=== PATIENT | female | born 1985 | race Caucasian/White ===

== ENCOUNTER 2018-04-20 21:05 | Emergency (ER) | payer OTHER, MEDICAID, SELFPAY ==
[2018-04-20 21:06] VITALS: BP 139/85; PULSE 64; RESP 14; TEMP 37.1; O2SAT 99
[2018-04-20 21:29] VITALS: BP 139/85; PULSE 64; RESP 14; TEMP 37.1; O2SAT 99
--- NOTE | 2018-04-20 21:29 | ED.DENTAL ---
HPI - Dental/Oral <KAR Rice - Last Filed: 04/20/18 21:54> General Chief complaint: Dental/Oral Stated complaint: Toothpain Time Seen by Provider: 04/20/18 21:28 Source: patient Mode of arrival: ambulatory Limitations: no limitations History of Present Illness HPI Narrative: 32-year-old healthy female as an everyday smoker here for complaint of pain into her lower molar 28 over the past several days. She reports that she accidentally fractured the tooth while biting down on a piece of candy last week. She denies any drainage from that area. She does report the pain started a few days after she fractured the tooth. She also reports increased pain and swelling to the gum area around the tooth. She denies any fevers or chills. She tried to get into a dentist however she was not able to. Related Data Previous Rx's Medication Instructions Recorded clindamycin HCl 300 mg PO TID #21 cap 04/20/18 hydrocodone-acetaminophen 1 tab PO Q4-6H PRN #10 tab 04/20/18 Allergies Allergy/AdvReac Type Severity Reaction Status Date / Time No Known Drug Allergies Allergy Verified 04/20/18 22:06 Review of Systems <KAR Rice - Last Filed: 04/20/18 21:54> Constitutional Denies chills, Denies fever(s), Denies lethargy and Denies weakness Eyes Denies change in vision, Denies eye discharge, Denies irritation and Denies loss of vision ENT Ears, Nose, Mouth, and Throat: Denies change in voice, Denies neck pain and Denies sore throat Comments: To the gum pain into a right lower side Cardiovascular Denies chest pain, Denies irregular heart rhythm, Denies lightheadedness, Denies palpitations, Denies dyspnea, Denies dyspnea on exertion and Denies orthopnea Respiratory Denies cough, Denies dyspnea, Denies dyspnea on exertion and Denies wheezing Gastrointestinal Gastrointestinal: Denies abdominal pain, Denies change in bowel habits, Denies diarrhea, Denies nausea and Denies vomiting Genitourinary Denies hematuria, Denies flank pain, Denies urinary incontinence and Denies urinary urgency Musculoskeletal Denies neck pain Integumentary/Breasts Denies pruritus, Denies erythema, Denies rash and Denies wounds Neurologic Denies confusion, Denies loss of vision and Denies weakness Psychiatric Denies anxiety, Denies confusion, Denies depression, Denies homicidal ideation and Denies suicidal ideation Endocrine Denies palpitations Hematologic/Lymphatic Denies easy bruising Allergic/Immunologic Denies wheezing Exam <KAR Rice - Last Filed: 04/20/18 21:54> Initial Vital Signs Initial Vital Signs: Vital Signs Temperature 98.8 F 04/20/18 21:06 Pulse Rate 64 04/20/18 21:06 Respiratory Rate 14 04/20/18 21:06 Blood Pressure 139/85 04/20/18 21:06 Pulse Oximetry 99 04/20/18 21:06 Const General: cooperative and well developed Nutritional Appearance: well nourished Orientation: alert, awake, oriented x3 and not confused HENMT Mouth: oral mucosae normal and moist mucous membranes Teeth and gingiva: other (Fracture to tooth 28. Slight amount of redness and swelling to the gums. no induration or fluctuance) Throat: tonsils normal and uvula midline Eyes General: appearance normal, both eyes and all related structures Eyelids: eyelids normal Conjunctivae: conjunctivae normal Sclera: sclerae normal Pupils: PERRL EOM: EOM intact bilaterally Neck Neck: normal visual inspection, trachea midline, No lymphadenopathy, No midline deformity and No JVD Lymphatic: No lymphedema Chest Chest: normal inspection of the chest Resp Effort & Inspection: normal respiratory effort, able to speak in complete sentences, no respiratory distress and no use of accessory muscles Auscultation: clear to auscultation bilaterally, no rales, no rhonchi and no wheezes Cardio Rate: regular rate Rhythm: regular rhythm Heart Sounds: no click, no gallops, no murmurs and no rubs Pulses: normal peripheral pulses GI Inspection: non-distended Palpation: soft, no hepatosplenomegaly, No guarding, No pulsatile mass and No tender Auscultation: normal bowel sounds Back/Spine/Pelvis Back: No CVA tenderness Cervical Spine: cervical ROM normal and No pain with cervical ROM Thoracic/Lumbar Spine: thoracic and lumbar spine normal to inspection Skin General: no rashes or lesions noted, No jaundice and No petechiae Neuro General: alert, oriented x3, gait normal and no focal motor deficits Speech: speech normal Extrem General: full ROM, no clubbing, cyanosis or edema, no pedal edema and no calf tenderness Psych Appearance: well kempt Mental Status: mental status grossly normal Attitude: cooperative Thought Content: normal and suicidality Judgment: judgment good <Sathish Merrill DO - Last Filed: 04/21/18 02:06> Initial Vital Signs Initial Vital Signs: Vital Signs Temperature 98.8 F 04/20/18 21:06 Pulse Rate 64 04/20/18 21:06 Respiratory Rate 14 04/20/18 21:06 Blood Pressure 139/85 04/20/18 21:06 Pulse Oximetry 99 04/20/18 21:06 Course <KAR Rice - Last Filed: 04/20/18 21:54> Orders Ordered: Discontinued Medications Hydrocodone Bitart/Acetaminophen (Vicodin Prepack) 1 bottle MISC SEEINSTR ONE Stop: 04/20/18 21:53 Last Admin: 04/20/18 22:05 Dose: 1 bottle Vital Signs - 8 hr 04/20/18 21:06 04/20/18 21:29 Temperature 98.8 F 98.8 F Pulse Rate 64 64 Respiratory Rate 14 14 Blood Pressure 139/85 139/85 Pulse Oximetry 99 99 <Sathish Merrill DO - Last Filed: 04/21/18 02:06> Orders Ordered: Discontinued Medications Hydrocodone Bitart/Acetaminophen (Vicodin Prepack) 1 bottle MISC SEEINSTR ONE Stop: 04/20/18 21:53 Last Admin: 04/20/18 22:05 Dose: 1 bottle Vital Signs - 8 hr 04/20/18 21:06 04/20/18 21:29 Temperature 98.8 F 98.8 F Pulse Rate 64 64 Respiratory Rate 14 14 Blood Pressure 139/85 139/85 Pulse Oximetry 99 99 MDM - Dental/Oral <KAR Rice - Last Filed: 04/20/18 21:54> MDM Narrative Medical decision making narrative: Continued using ibuprofen for discomfort. Small amount of [place] is prescribed for breakthrough pain. She is prescribed clindamycin to treat possible starting dental abscess. She is encouraged to follow up with dentist as soon as possible. For any worsening symptoms return to the emergency room. Discharge Plan Departure Patient Disposition: Home Clinical Impression: Pain, dental Discharge Date/Time: 04/20/18 22:04 Interventions: ED Discharge Assessment Last Done: 04/20/18 22:04 Instructions: DI for Dental Pain Activity Restrictions/Additional Instructions: Use [id number] ibuprofen as needed for discomfort. Small amount of [place] was provided for breakthrough pain use as directed. No driving while on the [place]. To prevent starting infection You are placed on clindamycin an antibiotic use as directed. For any worsening symptoms return to the emergency room. Follow-up with dentist as soon as possible. Prescriptions: New clindamycin HCl 300 mg capsule 300 mg PO TID Qty: 21 RF: 0 hydrocodone-acetaminophen 5-325 mg tablet 1 tab PO Q4-6H PRN (Reason: pain) Qty: 10 RF: 0 <Sathish Merrill, - Last Filed: 04/21/18 02:06> [facility] ED Attending June Attestation: I was immediately available in the department for consultation. Documentation has been reviewed. I agree with assessment and plan.
--- NOTE | 2018-04-20 21:32 | PC.NURSE ---
PT states cracked tooth and pain to #29 tooth, after eating a peanut M&M on 04/16. 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 Pt denies fever.
[2018-04-20] MEDS: HYDROCODONE/ACET 5/325 PREPACK 1 BOTTLE MISC (22:05)
== END 2018-04-20 22:04 | disposition home or self-care (01) ==
PROVIDERS: Emergency Provider Nurse Practitioner Family
DX: K08.89 Other specified disorders of teeth and supporting structures (principal)
CPT/HCPCS: 99282

== ENCOUNTER 2019-08-11 20:41 | Emergency (ER) | payer OTHER, MEDICAID, SELFPAY ==
[2019-08-11 20:52] VITALS: BP 141/66; PULSE 105; RESP 20; TEMP 36.8; O2SAT 97
--- NOTE | 2019-08-11 20:54 | DI.RAD.S_ITS ---
PROCEDURE: XR ANKLE LT MIN 3V INDICATIONS: lt ankle pain no known injury TECHNIQUE: 3 views of the ankle were acquired. COMPARISON: None. FINDINGS: Bones: Mild osteophytic changes in tibiotalar joint are seen with joint space narrowing and subchondral sclerosis. Slight widening of lateral ankle mortise is seen, which may represent distal syndesmotic injury. No fractures or dislocations. The No suspicious bony lesions. Soft tissues: No tibiotalar joint effusion. Achilles tendon appears normal. IMPRESSION: Mild tibiotalar joint osteoarthritic changes. Widening of lateral ankle mortise, which may indicate syndesmotic injury. No acute fracture or dislocation. Dictated by: Memo Winston M.D. on 08/11/2019 at 21:30 Approved by: Memo Winston M.D. on 08/11/2019 at 21:31
--- NOTE | 2019-08-11 22:36 | ED_ITS ---
HPI - Extremity Injury (Lower) General Chief Complaint: Extremity Injury, Lower Stated Complaint: LEFT ANKLE PAIN Time Seen by Provider: 08/11/19 22:36 Source: patient Mode of arrival: Ambulatory Limitations: no limitations History of Present Illness HPI Narrative: This is a 33-year-old female comes in with left ankle pain. Patient states she has had pain starting since Friday. She does remember having any trauma. She has been working on her legs more frequently. She has had some swelling a little bit of ecchymosis. She has pain sort of at the ankle laterally in the middle. She denies any numbness, tingling or weakness. She denies any major prior injuries. She states she had a short Achilles tendon as a child. She denies any other issues at this time. Related Data Previous Rx's Medication Instructions Recorded clindamycin HCl 300 mg PO TID #21 cap 04/20/18 hydrocodone-acetaminophen 1 tab PO Q4-6H PRN #10 tab 04/20/18 Allergies Allergy/AdvReac Type Severity Reaction Status Date / Time No Known Drug Allergies Allergy Verified 04/20/18 22:06 Review of Systems Review of Systems ROS Unobtainable: All systems reviewed & are unremarkable except as noted in HPI and below Patient History Social History Smoking Status: Current every day smoker Smoking Status: Current every day smoker Exam Narrative Exam Narrative: GENERAL: Alert and oriented x three, well-nourished, well- appearing female, mild distress HEENT: Head normocephalic, atraumatic, EOMI, pupils reactive, face symmetric, moist mucous membranes NECK: Supple, full range of motion EXTREMITIES: Normal range of motion, no clubbing, mild edema, particularly over the lateral malleoli. Mild tenderness in the mid ankle. Note specific bony tenderness or point tenderness. Patient does not have any ecchymosis that I appreciate. She has normal range of motion. Patient is able to weight bear. Neurovascularly intact NEUROLOGICAL: Cranial nerves II through XII grossly intact. Moving all extremities SKIN: Warm, dry, no petechiae, no rashes or lesions. Initial Vital Signs Initial Vital Signs: Vital Signs Temperature 98.2 F 08/11/19 20:52 Pulse Rate 105 H 08/11/19 20:52 Respiratory Rate 20 08/11/19 20:52 Blood Pressure 141/66 H 08/11/19 20:52 Pulse Oximetry 97 08/11/19 20:52 Course Orders Ordered: ED Orders 08/11/19 20:54 XR ankle LT min 3V Stat Vital Signs Vital signs: Vital Signs - 8 hr 08/11/19 23:03 Temperature 99.3 F Pulse Rate 85 Respiratory Rate 16 Blood Pressure 141/65 H Pulse Oximetry 97 MDM - Extremity Injury (Lower) Imaging Data left ankle xray: Radiologist's Impression: [address] [address] XRay Report Signed Patient: Parvin Atkinson GMR#: [id number] : 1985Acct:[id number] Age/Sex: 33 / FDate of Service: 08/11/19 Loc: ED Accession Number: [id number] Procedure: XR ankle LT min 3V Ordering Provider: Eden Saunders D.O. PROCEDURE: XR ANKLE LT MIN 3V INDICATIONS: lt ankle pain no known injury TECHNIQUE: 3 views of the ankle were acquired. COMPARISON: None. FINDINGS: Bones: Mild osteophytic changes in tibiotalar joint are seen with joint space narrowing and subchondral sclerosis. Slight widening of lateral ankle mortise is seen, which may represent distal syndesmotic injury. No fractures or dislocations. The No suspicious bony lesions. Soft tissues: No tibiotalar joint effusion. Achilles tendon appears normal. IMPRESSION: Mild tibiotalar joint osteoarthritic changes. Widening of lateral ankle mortise, which may indicate syndesmotic injury. No acute fracture or dislocation. Dictated by: Memo Winston M.D. on 08/11/2019 at 21:30 Approved by: Memo Winston M.D. on 08/11/2019 at 21:31 [facility] Narrative Medical decision making narrative: Patient does have some osteoarthritic changes as well as some widening that could possibly from syndesmosis injury. She does not recall any trauma. Referred for Orthopedic surgery as she may have had something in the past. She did have a short Achilles tendon and had intervention for this as a child so this could also affect her imaging possibly. Patient is ambulating without much issue. She has her own splint. Plan for RICE and return precautions. Discharge Plan Departure Patient Disposition: Home Clinical Impression: Left ankle pain Qualifiers: Chronicity: unspecified Qualified Code(s): M25.572 - Pain in left ankle and joints of left foot Discharge Date/Time: 08/11/19 23:03 Instructions: DI for Ankle Pain Activity Restrictions/Additional Instructions: Call to follow-up with Orthopedic surgery in the next week or two for recheck. You may use Tylenol and/or ibuprofen as needed for pain. Splint Care: Keep splint clean and dry. Elevated affected body part to decrease swelling. OK to use ice pack on the affected body part. Use for 15-20 minutes each time, for 5-6x per day. If you develop worsening pain, numbness, tingling, discoloration of the affected body part, loosen the splint by loosening the HALI wrap, and either see your doctor for an urgent re-assessment, or return to the Emergency Department. Return to the Emergency Department for any new or worsening symptoms. Prescriptions: No Action clindamycin HCl 300 mg capsule 300 mg PO TID Qty: 21 RF: 0 hydrocodone-acetaminophen 5-325 mg tablet 1 tab PO Q4-6H PRN (Reason: pain) Qty: 10 RF: 0 Referrals: Julian Brandt MD [Physician] -
[2019-08-11 23:03] VITALS: BP 141/65; PULSE 85; RESP 16; TEMP 37.4; O2SAT 97
--- NOTE | 2019-12-02 13:10 | PC.NURSE ---
Pt called ED claiming that she lost her discharge paperwork and needs to know where she was referred to by Dr. Saunders. Pt is now aware that she was referred to Dr. Brandt at [facility] and was given the phone number to reach them.
== END 2019-08-11 23:03 | disposition home or self-care (01) ==
PROVIDERS: Emergency Provider Emergency Medicine
DX: M25.572 Pain in left ankle and joints of left foot (principal)
CPT/HCPCS: 73610; 99283

== ENCOUNTER 2023-03-24 23:23 | Emergency (ER) | payer BC, SELFPAY ==
[2023-03-24 23:26] VITALS: BP 140/65; PULSE 74; RESP 18; TEMP 37.1; O2SAT 97; BMI 29.7
[2023-03-24 23:59] LABS: Add Manual Diff / Slide Review NO; Basophils Absolute Auto 200 /uL (0-100); Basophils Percent Auto 1.1 % (0-2); Eosinophils Absolute Auto 200 /uL (0-450); Eosinophils Percent Auto 0.9 % (2-4); Hematocrit 37.1 % (36-46); Hemoglobin 12.7 g/dL (12.0-16.0); Lymphocytes Absolute Auto 2600 /uL (1100-4500); Lymphocytes Percent Auto 14.7 % (25-40); Mean Corpuscular HGB Conc 34.2 % (30-36); Mean Corpuscular Hemoglobin 29.7 PG (26-34); Mean Corpuscular Volume 86.9 fL (80-100); Monocytes Absolute Auto 1000 /uL (0-900); Monocytes Percent Auto 5.6 % (3-14); Neutrophils Absolute Auto 13400 /uL (1500-7000); Neutrophils Percent Auto 77.7 % (50-75); Platelet Count 326 X10^3/uL (150-400); Red Blood Cell Count 4.26 X10^6/uL (4.0-5.2); Red Cell Distribution Width 15.5 % (11.6-14.8); White Blood Cell Count 17.3 X10^3/uL (4.5-11.0)
--- NOTE | 2023-03-25 00:01 | DI.US.S_ITS ---
PROCEDURE: US OB <= 14 WEEKS FETUS INDICATIONS: BLEEDING OUTSIDE/PRIOR DATING DATA: Last menstrual period (LMP): 01/16/23. LMP-based estimated date of delivery (PRITI): 10/23/23. First dating scan (date and location): 03/25/23. Estimated date of delivery (PRITI) from first dating scan: 10/23/23. TECHNIQUE: Real-time scanning was performed of the fetus and maternal pelvic organs, with image documentation. Endovaginal scanning was also performed to better visualize the fetus and maternal ovaries. COMPARISON: None. FINDINGS: Anteverted uterus contains a fundal gestational sac. No perigestational hemorrhage. The cervix is closed and there are few nabothian cysts present. An intrauterine is present including a single pole with an average crown-rump length of 2.8 cm corresponding to a 9 week, five day, plus or minus 6 days gestation. There is detectable cardiac activity in the fetus at a rate of 130 beats per minute. A normal yolk sac is present. There is an unfused amnion. Maternal right ovary contains a corpus luteum. The left ovary is within normal limits. No free fluid in the pelvis. IMPRESSION: 1. Single living intrauterine with a gestational age of 9 weeks 5 days and sonographic due date of 10/23/23. This is in good agreement with the clinically assigned gestational age. 2. No perigestational hemorrhage and closed cervix. We strive to produce accurate, complete, and clear reports of imaging services. To assist us in improving patient care, this report was composed using standard report templates and voice recognition software. Therefore, it may contain abnormal punctuation, insertions and/or omissions. Occasional wrong-word or sound-alike substitutions may occur. Though we review the report and make efforts to correct it, we do recommend that the report be read carefully in proper context to recognize any text inaccuracies. Dictated by: Jaci Alegria M.D. on 03/25/2023 at 2:36 Approved by: Jaci Alegria M.D. on 03/25/2023 at 2:40
[2023-03-25 00:14] LABS: Alanine Aminotransferase 14 IU/L (<35); Albumin 3.8 g/dL (3.5-5.0); Albumin Globulin Ratio 1.2 (1.0-2.8); Alkaline Phosphatase 41 U/L (38-126); Aspartate Aminotransferase 19 IU/L (14-36); BUN Creatinine Ratio 12.1 (6-22); Bilirubin Total 0.3 mg/dL (0.2-1.3); Blood Urea Nitrogen 7 mg/dL (7-17); Calcium 8.9 mg/dL (8.4-10.2); Carbon Dioxide 20 mmol/L (22-32); Chloride 106 mmol/L (98-107); Estimated Glomerular Filt Rate > 60 mL/min (>60); Globulin 3.1 g/dL (1.7-4.1); Glucose 105 mg/dL (70-100); HEMOLYSIS < 15 (0-50); Potassium 3.4 mmol/L (3.4-5.1); Sodium 134 mmol/L (137-145); Total Protein 6.9 g/dL (6.3-8.2)
[2023-03-25 00:31] LABS: HCG Quantitative /Beta subunit 80016 mIU/mL
--- NOTE | 2023-03-25 00:58 | ED.FEMALEGU ---
HPI - Female Genitourinary General Chief complaint: OB/Uterine Contractions Stated complaint: vaginal bleeding around 9 weeks not sure Time Seen by Provider: 03/24/23 23:37 Source: patient Mode of arrival: Ambulatory History of Present Illness HPI Narrative: 37-year-old female daily smoker is a at about 9 weeks by dates presents with a chief complaint of some mild pelvic cramping and spotting over the course of the day. She is otherwise well and free of complaint and denies symptoms such as dizziness, weakness or lightheadedness. She is had chest pain or shortness of breath. She denies fever or chills. She denies dysuria, frequency or urgency Related Data Previous Rx's Medication Instructions Recorded clindamycin HCl 300 mg capsule 300 mg PO TID #21 caps 04/20/18 hydrocodone 5 mg-acetaminophen 325 1 tab PO Q4-6H PRN pain #10 tabs 04/20/18 mg tablet Allergies Allergy/AdvReac Type Severity Reaction Status Date / Time No Known Drug Allergies Allergy Verified 04/20/18 22:06 Review of Systems Review of Systems Narrative: GENERAL: Denies chills, fatigue, malaise, fever, sweats. HEENT: Denies sinus pain, ear pain, sore throat, difficulty swallowing, dizziness. RESPIRATORY: Denies dyspnea, cough, wheezing, hemoptysis, sputum. CARDIOVASCULAR: Denies chest pain, palpitations, orthopnea, edema, GASTROINTESTINAL: Denies nausea, vomiting, abdominal pain, diarrhea, constipation, melena. : See HPI MUSCULOSKELETAL: denies weakness, joint pain, or bony pain SKIN: Denies rash, skin lesions, or other NEUROLOGIC: Denies weakness, headache, numbness, change in speech, confusion, seizures, incoordination. PSYCHIATRIC: No concerning psychosocial issues. 12 point review of systems is negative except for those stated above Patient History tobacco type: cigarettes alcohol intake frequency: other Substance Use Type: marijuana Exam Narrative Exam Narrative: GENERAL: [37] year old patient appears stated age. Well-developed patient, in mild distress. HEAD: Atraumatic. Normocephalic. EYES: Pupils equal round and reactive. Extraocular motions intact. No scleral icterus. No injection or drainage. ENT: Nose without bleeding, purulent drainage. Throat without erythema, tonsillar hypertrophy or exudate. Airway patent. NECK: Trachea midline. Non tender CARDIOVASCULAR: Regular rate and rhythm without murmurs, gallops, or rubs. RESPIRATORY: Clear to auscultation. Breath sounds equal bilaterally. No wheezes, rales, or rhonchi. GASTROINTESTINAL: Abdomen soft, non-tender, nondistended. EXTREMITIES: No edema or joint tenderness. BACK: Nontender without deformity or crepitance. No flank tenderness. NEURO: AOx3. SKIN: No rash or erythema of visible areas Initial Vital Signs Initial Vital Signs: Vital Signs Temperature 98.8 F 03/24/23 23:26 Pulse Rate 74 03/24/23 23:26 Respiratory Rate 18 03/24/23 23:26 Blood Pressure 140/65 03/24/23 23:26 Pulse Oximetry 97 03/24/23 23:26 Oxygen Delivery Method Room Air 03/24/23 23:26 Course Orders Ordered: ED Orders 03/24/23 23:43 Complete Blood Count AUTO DIFF Stat Comprehensive Metabolic Panel Stat HCG Quantitative /Beta subunit Stat Type and Screen Stat 03/25/23 00:01 US OB <= 14 weeks fetus Stat Vital Signs Vital signs: Vital Signs - 8 hr 03/24/23 23:26 03/25/23 03:31 Temperature 98.8 F 98.8 F Pulse Rate 74 56 L Respiratory Rate 18 16 Blood Pressure 140/65 111/58 L Pulse Oximetry 97 98 Oxygen Delivery Method Room Air Room Air MDM - Female Genitourinary Lab Data 03/24/23 23:43 03/24/23 23:43 Labs: Lab Results 03/24/23 Range/Units 23:43 WBC 17.3 H (4.5-11.0) X10^3/uL RBC 4.26 (4.0-5.2) X10^6/uL Hgb 12.7 (12.0-16.0) g/dL Hct 37.1 (36-46) % MCV 86.9 (80-100) fL MCH 29.7 (26-34) PG MCHC 34.2 (30-36) % RDW 15.5 H (11.6-14.8) % Plt Count 326 (150-400) X10^3/uL Neut % (Auto) 77.7 H (50-75) % Lymph % (Auto) 14.7 L (25-40) % Nelson % (Auto) 5.6 (3-14) % Eos % (Auto) 0.9 L (2-4) % Baso % (Auto) 1.1 (0-2) % Neut # (Auto) 95831 H (8631-8941) /uL Lymph # (Auto) 2600 (3896-1605) /uL Nelson # (Auto) 1000 H (0-900) /uL Eos # (Auto) 200 (0-450) /uL Baso # (Auto) 200 H (0-100) /uL Sodium 134 L (137-145) mmol/L Potassium 3.4 (3.4-5.1) mmol/L Chloride 106 (98-107) mmol/L Carbon Dioxide 20 L (22-32) mmol/L BUN 7 (7-17) mg/dL Creatinine 0.58 (0.52-1.04) mg/dL Estimated GFR > 60 (>60) mL/min BUN/Creatinine Ratio 12.1 (6-22) Glucose 105 H (70-100) mg/dL Calcium 8.9 (8.4-10.2) mg/dL Total Bilirubin 0.3 (0.2-1.3) mg/dL AST 19 (14-36) IU/L ALT 14 (<35) IU/L Alkaline Phosphatase 41 (38-126) U/L Total Protein 6.9 (6.3-8.2) g/dL Albumin 3.8 (3.5-5.0) g/dL Globulin 3.1 (1.7-4.1) g/dL Albumin/Globulin Ratio 1.2 (1.0-2.8) HCG, Quant 05388 mIU/mL Blood Type A Positive Antibody Screen Negative Point of Care Testing Test Results Positive Urine Dip Bedside Urine Glucose Negative Bedside Urine Bilirubin - Negative Bedside Urine Ketone - Negative Urine Specific Crawford 1.010 Bedside Urine Occult Blood - Negative Bedside Urine pH 6.0 Bedside Urine Protein - Negative Bedside Urine Urobilinogen - Negative Bedside Urine Nitrite - Negative Bedside Urine Leukocytes - Negative Esterase MDM Narrative Medical decision making narrative: [37] year old patient presents with positive , cramping and spotting Multiple etiologies for patient's symptoms considered including, but not limited to: [Implantation bleeding versus miscarriage versus ectopic versus other] Prior Charts reviewed in our EMR Primary Historian: patient Labs reviewed and interpreted by myself: Leukocytosis at 17.3 with minimal relative left shift, primary electrolytes within normal limits, beta quantitative HCG 15595 Imaging reviewed: IUP at 9 weeks Patient's symptoms improved over duration of stay with above-stated therapies. Findings and discharge diagnosis discussed with patient/family followed by verbalization of understanding Return precautions discussed with patient/family whom verbalize understanding of diagnosis and plan Discharge Plan Departure Patient Disposition: Home Clinical Impression: Hemorrhage affecting in first trimester Instructions: DI for Vaginal Bleeding During Activity Restrictions/Additional Instructions: *You have been diagnosed with [spotting in first-trimester of . As we discussed your history and physical exam as well as labs and ultrasound are reassuring] *What to do: *Please continue to take your regular medications as directed. *Please follow up with your primary care provider in 2-3 days, call for an appointment. Let them know you were seen in the Emergency Department and that we ask that you be seen in follow up. We will electronically transmit a record of today's note if your PCP is in our system *If you do not have a primary care provider please contact the [facility] Resource line at [phone]. They will ask some questions about your medical history and help get you set up with a doctor in the community. *Return to Emergency Department if you should have any new, worsening or concerning symptoms, such as [fever greater than 101 F, shaking chills, worsening pain, persistent vomiting or other bothersome symptoms] Prescriptions: No Action clindamycin HCl 300 mg capsule 300 mg PO TID Qty: 21 0RF hydrocodone-acetaminophen 5-325 mg tablet 1 tab PO Q4-6H PRN (Reason: pain) Qty: 10 0RF Referrals: Emmie Arteaga MD [Physician] - Stand Alone Forms: Patient Portal/API
[2023-03-25 03:31] VITALS: BP 111/58; PULSE 56; RESP 16; TEMP 37.1; O2SAT 98
== END 2023-03-25 03:32 | disposition home or self-care (01) ==
PROVIDERS: Emergency Provider Emergency Medicine
DX: O20.9 Hemorrhage in early pregnancy, unspecified (principal); Z3A.09 9 weeks gestation of pregnancy
CPT/HCPCS: 36415; 76801; 76817; 80053; 81003; 81025; 84702; 85025; 86850; 86900; 86901; 99283; 99284

== ENCOUNTER → 2023-04-11 15:24 | Outpatient (CLI) | payer BC, SELFPAY ==
[2023-04-11 16:16] LABS: Add Manual Diff / Slide Review NO; Basophils Absolute Auto 100 /uL (0-100); Basophils Percent Auto 0.7 % (0-2); Eosinophils Absolute Auto 200 /uL (0-450); Eosinophils Percent Auto 1.7 % (2-4); Hematocrit 38.6 % (36-46); Lymphocytes Absolute Auto 2300 /uL (1100-4500); Mean Corpuscular HGB Conc 33.7 % (30-36); Mean Corpuscular Volume 89.1 fL (80-100); Monocytes Absolute Auto 800 /uL (0-900); Monocytes Percent Auto 6.4 % (3-14); Neutrophils Absolute Auto 8600 /uL (1500-7000); Neutrophils Percent Auto 72.2 % (50-75); Platelet Count 223 X10^3/uL (150-400); Red Blood Cell Count 4.34 X10^6/uL (4.0-5.2)
[2023-04-11 17:17] LABS: Appearance Urine UA CLEAR; Bilirubin Urine UA NEGATIVE (NEGATIVE); Color Urine UA YELLOW; Glucose Urine UA NEGATIVE (Negative); Ketones Urine UA NEGATIVE (NEGATIVE); Leukocyte Esterase Urine UA TRACE (NEGATIVE); Nitrite Urine UA NEGATIVE (Negative); Occult Blood Urine UA NEGATIVE (Negative); Protein Urine UA NEGATIVE (Negative); Urobilinogen Urine UA 0.2 E.U./dL (0.2)
[2023-04-11 18:07] LABS: Bacteria Urine None Seen; Culture Indicated Urine Cult Not Indicated; RBC Urine 0-1/HPF (0-5/HPF); Squamous Epithelial Cell Urine 0-1 /HPF (0-5/HPF); WBC Urine 1-5/HPF (0-5/HPF)
[2023-04-11 18:18] LABS: Hepatitis B Surface Antigen NEGATIVE s/c (NEGATIVE); Rubella Antibody IgG 57.8 IU/mL (>15)
[2023-04-11 18:36] LABS: HIV 1 & 2 Ab/Ag 4th Gen Combo NEGATIVE (NEGATIVE); Hep C Virus Ab w/Reflex Quant NEGATIVE s/c (NEGATIVE)
[2023-04-13 06:51] LABS: RPR Screen Non Reactive (Non Reactive)
[2023-04-13 09:59] LABS: Varicella IgG Antibody 2040 index (Immune >165)
== END ==
PROVIDERS: PCP Student in an Organized Health Care Education/Training Program; Referring Provider Student in an Organized Health Care Education/Training Program; Visit Provider Student in an Organized Health Care Education/Training Program
DX: Z34.80 Encounter for supervision of other normal pregnancy, unspecified trimester (principal)
CPT/HCPCS: 36415; 80055; 81003; 81015; 86787; 86803; 86850; 86900; 86901; 87086; 87389

== ENCOUNTER → 2023-06-03 13:53 | Outpatient (CLI) | payer BC, SELFPAY ==
--- NOTE | 2023-06-03 13:55 | DI.US.S_ITS ---
PROCEDURE: US OB >= 14 WEEKS FETUS INDICATIONS: 20 week Ultrasound OUTSIDE/PRIOR DATING DATA: Last menstrual period (LMP): 01/16/2023. LMP-based estimated date of delivery (PRITI): 10/23/2023. First dating scan (date and location): 03/25/2023. Estimated date of delivery (PRITI) from first dating scan: 10/23/2023. TECHNIQUE: Real-time scanning was performed of the fetus, with image documentation and biometric measurements. COMPARISON: [facility], , OB <= 14 WEEKS FETUS, 03/25/2023, 0:47. FINDINGS: General: A single living intrauterine gestation is present. Presentation: Breech. Placenta: Placental position is posterior, without previa. Amniotic fluid index: 18.2 cm, normal range is 5-24 cm. Single deepest vertical pocket is 5.1 cm. heart rate: 133 beats per minute. Maternal cervical canal: 3.4 cm long. Normal lower limit is 2.5 cm. biometrics: Biparietal diameter: 19 weeks 3 days Head circumference: 19 weeks 5 days Abdominal circumference: 20 weeks 1 day Femur length: 20 weeks 1 day Clinically estimated gestational age: 19 weeks 5 days Composite gestational age from present scan: 19 weeks 6 days Estimated weight and percentile: 329 g; 65% for gestational age. Anatomic survey: Neuro: Ventricles are non-dilated at less than 10 mm. Cisterna magna is normal at 3-11 mm. Cerebellum is normal in size and morphology. Nuchal skin fold: Normal at less than 6 mm between 14-21 weeks gestational age. Face: Nose and lips, facial profile are normal. Spine: No evidence for spina bifida. Heart: 4-chambered heart is present, with normal ventricular outflow tracts. Diaphragm: Diaphragm is intact. Stomach: Left-sided stomach is present. Kidneys: No hydronephrosis. Normal is less than 5 mm in 2nd trimester, less than 7 mm in 3rd trimester. Cord: 3-vessel cord has orthotopic insertion. Bladder: Normal in size. Extremities: All 4 extremities identified. IMPRESSION: 1. A single living intrauterine gestation with appropriate interval growth. 2. Normal anatomic survey. We strive to produce accurate, complete, and clear reports of imaging services. To assist us in improving patient care, this report was composed using standard report templates and voice recognition software. Therefore, it may contain abnormal punctuation, insertions and/or omissions. Occasional wrong-word or sound-alike substitutions may occur. Though we review the report and make efforts to correct it, we do recommend that the report be read carefully in proper context to recognize any text inaccuracies. Dictated by: Etelvina Billingsley M.D. on 06/04/2023 at 8:36 Approved by: Etelvina Billingsley M.D. on 06/04/2023 at 8:38
== END ==
PROVIDERS: PCP Student in an Organized Health Care Education/Training Program; Referring Provider Student in an Organized Health Care Education/Training Program; Visit Provider Student in an Organized Health Care Education/Training Program
DX: Z36.89 Encounter for other specified antenatal screening (principal); Z3A.19 19 weeks gestation of pregnancy
CPT/HCPCS: 76811

== ENCOUNTER 2023-06-14 19:32 | Outpatient (CLI) | payer BC, SELFPAY ==
--- NOTE | 2023-06-14 19:58 | PM.OBTRLD ---
Visit Information Visit Information Date of evaluation: 06/14/23 Primary OB Provider: Julia Acevedo On-call OB Provider: Minal Ferguson Reason for Evaluation: Yes other Comments/Additional reasons for admission: Patient is a 37 yo at 21w2d presenting with vaginal spotting. c/b AMA, tobacco abuse. Noted yesterday, scant pink discharge. Then noted dark red/brown spot in underwear today. [place] the day prior. Nothing else in vaginal. No new activity, but pretty active at work. No gabby VB. No LOF. [place] some cramping at work, resolved with rest. No contractions. Not yet feeling FM in . Vital Signs Vital Signs: See EMR [facility] Medical History (Updated 04/28/23 @ 21:15 by Mirtha Camara) Wears glasses Anxiety (~2019) Ankle pain (~2019) Ovarian cyst (~2012) Infertility (~2008) Ruptured tubal of left fallopian tube Migraine without aura Surgical History (Updated 04/28/23 @ 21:15 by Mirtha Camara) Anesthesia History of cranial surgery (~1985) History of salpingectomy [place] teeth extracted Family History (Updated 04/28/23 @ 21:20 by Mirtha Camara) Mother Diabetes mellitus Asthma Heart disease Heart attack Obesity Developmental disability Hypertension Mental health problem Grandmother Obesity Heart disease Hypertension Kidney failure Heart attack Stroke Father Family estrangement Grandfather Diabetes mellitus Social History marital status: number of children: 0 household members: spouse lives independently: Yes caregiver/support person: No housing: condominium (formerly [facility] home) pets and animals: Yes (1 cat, 1 dog) education level: other (GED) occupational status: employed 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) special kimber needs: No travel history: over 6 months ago seatbelt use: always helmet use: No water heater temp set < 120 deg: Yes working smoke detector in home: Yes fire extinguisher in home: Yes carbon monox detector in home: Yes firearms in home: Yes firearms unloaded and locked: Yes do you feel safe at home: Yes Smoking Status: Current every day smoker quit status: considering quitting second hand exposure: Yes ( smokes, trying to quit w/ pt) alcohol intake: former (~22-3/day prior to learning of ) substance use type: marijuana (daily; instructed not to use while /) and methamphetamine (clean ~3 years) during the past year weight has: decreased > 10 lbs well-balanced diet: about half the time daily servings fruits/ve-4 caffeine: Yes (excessive soft drinks, informed of 200 mg limit) Type(s) of exercise: walking additional social history: Pt and both smoke cigarettes but are trying to quit together, both also smoke MJ. Advised pt that she should not use MJ products while /, also that she and her should consider switching to edible/topical products (and if using topical products, apply to skin where baby would not be touching) when she is neither or to avoid exposing baby to the resins left behind on her skin and clothes by smoking. Exam Narrative Exam Narrative: GEN: NAD, well appearing, pleasant CV: RRR Pulm:normal WOB, CTAB Skin: no visible rashes, WWP Psych: normal affect Neuro: normal gait, symmetric movement (speculum exam): Closed, thick cervix, no abnormalities. Scant brown discharge. No active bleeding. Evaluation Evaluation Cervical dilation (cm): 0 Cervical effacement (%): 0 Comments: FHT appropriate on serial checks while in triage, 130-140s Diagnosis, Plan/Disposition Plan/Disposition Plan: Patient is a 37 yo at 21w2d presenting with vaginal spotting. c/b AMA, tobacco abuse. Rh +. Scant old blood on exam, no active bleeding. Possibly triggered by recent intercourse. No signs of labor - no contractions, cramping resolved. Cervix closed and thick on exam. FHTs reassuring. Wet prep and UA reassuring. No STI concerns. F/u with OB as scheduled. Return for VB, LOF, contractions, etc. OB Disposition: home
== END 2023-06-14 20:30 | disposition home or self-care (01) ==
LOC: OB 06-17 11:24
PROVIDERS: PCP Student in an Organized Health Care Education/Training Program; Referring Provider Student in an Organized Health Care Education/Training Program; Visit Provider Student in an Organized Health Care Education/Training Program
DX: O26.852 Spotting complicating pregnancy, second trimester (principal); O99.332 Smoking (tobacco) complicating pregnancy, second trimester; O36.0920 Maternal care for other rhesus isoimmunization, second trimester, not applicable or unspecified; F17.200 Nicotine dependence, unspecified, uncomplicated; Z3A.21 21 weeks gestation of pregnancy
CPT/HCPCS: 59025; 81001; 87210; G0378; G0379

== ENCOUNTER → 2023-07-07 11:58 | Outpatient (CLI) | payer BC, SELFPAY ==
[2023-07-07 14:05] LABS: GTT (PREG) 1 Hour PP 50gm Dose 104 mg/dL (76-139)
== END ==
PROVIDERS: PCP Student in an Organized Health Care Education/Training Program; Referring Provider Student in an Organized Health Care Education/Training Program; Visit Provider Student in an Organized Health Care Education/Training Program
DX: Z13.1 Encounter for screening for diabetes mellitus (principal); Z3A.24 24 weeks gestation of pregnancy
CPT/HCPCS: 36415; 82950

== ENCOUNTER → 2023-08-13 11:10 | Outpatient (CLI) | payer BC, SELFPAY ==
[2023-08-13 19:02] LABS: Appearance Urine UA CLEAR; Bilirubin Urine UA NEGATIVE (NEGATIVE); Color Urine UA YELLOW; Glucose Urine UA NEGATIVE (Negative); Ketones Urine UA NEGATIVE (NEGATIVE); Leukocyte Esterase Urine UA NEGATIVE (NEGATIVE); Nitrite Urine UA NEGATIVE (Negative); Occult Blood Urine UA NEGATIVE (Negative); Protein Urine UA NEGATIVE (Negative); Urobilinogen Urine UA 0.2 E.U./dL (0.2)
[2023-08-13 19:16] LABS: Bacteria Urine None Seen; Culture Indicated Urine Cult Not Indicated; RBC Urine None Seen (0-5/HPF); Squamous Epithelial Cell Urine None Seen (0-5/HPF); Urine Volume 10mL (spun); WBC Urine None Seen (0-5/HPF)
== END ==
PROVIDERS: PCP Student in an Organized Health Care Education/Training Program; Visit Provider Family Medicine
DX: N89.8 Other specified noninflammatory disorders of vagina (principal); N94.9 Unspecified condition associated with female genital organs and menstrual cycle
CPT/HCPCS: 81001; 87210

== ENCOUNTER 2023-08-13 22:17 | Inpatient (IN) | payer BC, SELFPAY ==
--- NOTE | 2023-08-13 22:46 | DI.US.S_ITS ---
PROCEDURE: US OB LIMITED INDICATIONS: vaginal bleeding OUTSIDE/PRIOR DATING DATA: Last menstrual period (LMP): 01/16/2023 LMP-based estimated date of delivery (PRITI): 10/23/2023 First dating scan (date and location): 03/25/2024 Estimated date of delivery (PRITI) from first dating scan: 10/23/2023 TECHNIQUE: Real-time scanning was performed of the fetus, with image documentation. Endovaginal scanning: Performed for better evaluation of the cervix. COMPARISON: [facility], OB >= 14 WEEKS FETUS, 06/03/2023, 14:21. FINDINGS: A single living intrauterine gestation is present. Presentation: Vertex Placenta: Placental position is right fundal, without previa. Amniotic fluid index: 5.3 cm, normal range is 5-24 cm. Single deepest vertical pocket is 3.8 cm. heart rate: 165 beats per minute. Maternal cervical canal: 0.4 cm long with funneling of the internal cervical os. Clinically estimated gestational age: 29 weeks 6 days IMPRESSION: 1. Single live intrauterine . 2. Thinning of the cervix measuring 0.4 cm in length with funneling of the internal cervical os. 3. Amniotic fluid index is 5.3 cm. Recommend correlation for oligohydramnios. Concordant preliminary findings were conveyed to the treatment team by the sole conditioner on 08/13/2023 at 11:07 PM. Approved by: Antonio Ruiz M.D. on 08/14/2023 at 0:05
[2023-08-13] MEDS: MAGNESIUM SULFATE 4 GM/100 ML PIGGYBACK IV (23:45)
[2023-08-13] MEDS: BETAMETHASONE 30 MG/5 ML MDV 12 MG IM (23:46)
[2023-08-13 23:48] LABS: Add Manual Diff / Slide Review NO; Basophils Absolute Auto 100 /uL (0-100); Basophils Percent Auto 0.4 % (0-2); Eosinophils Absolute Auto 0 /uL (0-450); Eosinophils Percent Auto 0.2 % (2-4); Hematocrit 34.9 % (36-46); Hemoglobin 12.1 g/dL (12.0-16.0); Lymphocytes Absolute Auto 1500 /uL (1100-4500); Lymphocytes Percent Auto 6.1 % (25-40); Mean Corpuscular HGB Conc 34.7 % (30-36); Mean Corpuscular Hemoglobin 31.9 PG (26-34); Monocytes Absolute Auto 1600 /uL (0-900); Monocytes Percent Auto 6.5 % (3-14); Neutrophils Absolute Auto 21300 /uL (1500-7000); Neutrophils Percent Auto 86.8 % (50-75); Platelet Count 244 X10^3/uL (150-400); Red Cell Distribution Width 13.4 % (11.6-14.8); White Blood Cell Count 24.6 X10^3/uL (4.5-11.0)
[2023-08-13 23:55] LABS: Alanine Aminotransferase 253 IU/L (<35); Albumin 3.5 g/dL (3.5-5.0); Albumin Globulin Ratio 1.1 (1.0-2.8); Alkaline Phosphatase 126 U/L (38-126); Aspartate Aminotransferase 201 IU/L (14-36); Bilirubin Total 1.2 mg/dL (0.2-1.3); Blood Urea Nitrogen 4 mg/dL (7-17); Calcium 8.3 mg/dL (8.4-10.2); Carbon Dioxide 24 mmol/L (22-32); Chloride 105 mmol/L (98-107); Estimated Glomerular Filt Rate > 60 mL/min (>60); Globulin 3.3 g/dL (1.7-4.1); Glucose 105 mg/dL (70-100); HEMOLYSIS < 15 (0-50); Sodium 135 mmol/L (137-145); Total Protein 6.8 g/dL (6.3-8.2)
[2023-08-13 23:56] LABS: Potassium 2.5 mmol/L (3.4-5.1)
[2023-08-14] VITALS (41 sets, daily range): BP systolic 113–167; BP diastolic 59–96; PULSE 61–90; RESP 10–35; O2SAT 97–99
[2023-08-14] MEDS: LABETALOL 20 MG/4 ML SYRINGE IV
[2023-08-14] MEDS: HYDRALAZINE 20 MG/ML VIAL 5 MG IV (00:49)
[2023-08-14] MEDS: POTASSIUM CHLORIDE 20 MEQ TAB PO (01:20)
[2023-08-14] MEDS: POTASSIUM CHLORIDE 20 MEQ TAB 40 MEQ PO (01:20)
[2023-08-14] MEDS: MAGNESIUM SULFATE 20 GM/500 ML IV.SOLN IV ×3 (02:33→18:36)
--- NOTE | 2023-08-14 02:42 | PM.OBHP.1 ---
OB HPI Date/Time Date of admission: 08/13/23 Date Patient Seen: 08/13/23 Time Patient Seen: 23:15 History of Present Condition Chief complaint: cramping, almost 30 weeks : 2 Para: 0 Estimated Date of Delivery: 10/23/23 Estimated Gestational Age (weeks): 29w6d Narrative: Parvin Atkinson is a 37 year old (previous ruptured ectopic) at 29w6d presenting for a few hours of vaginal bleeding and cramping. Ultrasound obtained on arrival showed cervical length of 0.4 cm, DORINDA of 5.3 cm with no sign of placenta previa or abruption. NST showed recurrent variable decelerations with baseline heart rate of 165 and decelerations dropping down to 80 beats per minute with most contractions. Patient was jae every 2 minutes on the monitor. SSE was performed and head was found to be low in the pelvis surrounded by bright red gabby blood throughout the vagina and introitus. SVE was performed and she was found to be 9/100/1. Obstetric backup was called to be available. She began involuntarily pushing and within 2 contractions infant was delivered. Nuchal cord was present. had poor color, tone and respiratory effort with initial of 6. Primary OB moved to care for baby and backup arrived soon after to deliver placenta. Also on arrival, patient was noted to be severely hypertensive. Preeclampsia labs showed normal platelets, elevated AST and ALT. She received 1 dose of IV labetalol 20 mg and then 1 dose of IV hydralazine 5 mg. Pressures did improve after this regimen. She was also found to be hypokalemic. EKG was performed and potassium was repleted Due to concern for abruption, urine drug screen was obtained and was positive for marijuana, otherwise negative. Indications Indication for induction OB: gestational HTN/pre-eclampsia History of Present care: good care Dating criteria: LMP confirmed by 1st trimester US Ultrasounds: normal 1st trimester US and normal mid trimester US Obstetrical complications: preeclampsia and labor Medical complications: none Preadmission Labs Blood type: A (+) positive -: Antibody screen: negative, Cystic fibrosis screen: unknown, GBS status: unknown, HBsAG: negative, HIV: negative, HSV 1: unknown, HSV 2: unknown and RPR/VDLR: negative -: Rubella: immune and Varicella: immune HCT: 12.1 HCAB: negative 1 hr GTT: 104 PFSH Medical History (Updated 04/28/23 @ 21:15 by Mirtha Camara) Wears glasses Anxiety (~2019) Ankle pain (~2019) Ovarian cyst (~2012) Infertility (~2008) Ruptured tubal of left fallopian tube Migraine without aura Surgical History (Updated 04/28/23 @ 21:15 by Mirtha Camara) Anesthesia History of cranial surgery (~1985) History of salpingectomy [place] teeth extracted Family History (Updated 04/28/23 @ 21:20 by Mirtha Camara) Mother Diabetes mellitus Asthma Heart disease Heart attack Obesity Developmental disability Hypertension Mental health problem Grandmother Obesity Heart disease Hypertension Kidney failure Heart attack Stroke Father Family estrangement Grandfather Diabetes mellitus Social History marital status: number of children: 0 household members: spouse lives independently: Yes caregiver/support person: No housing: condominium (formerly [facility] home) pets and animals: Yes (1 cat, 1 dog) education level: other (GED) occupational status: employed 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) special kimber needs: No travel history: over 6 months ago seatbelt use: always helmet use: No water heater temp set < 120 deg: Yes working smoke detector in home: Yes fire extinguisher in home: Yes carbon monox detector in home: Yes firearms in home: Yes firearms unloaded and locked: Yes do you feel safe at home: Yes Smoking Status: Current every day smoker quit status: considering quitting second hand exposure: Yes ( smokes, trying to quit w/ pt) alcohol intake: former (~22-3/day prior to learning of ) substance use type: marijuana (daily; instructed not to use while /) and methamphetamine (clean ~3 years) during the past year weight has: decreased > 10 lbs well-balanced diet: about half the time daily servings fruits/ve-4 caffeine: Yes (excessive soft drinks, informed of 200 mg limit) Type(s) of exercise: walking additional social history: Pt and both smoke cigarettes but are trying to quit together, both also smoke MJ. Advised pt that she should not use MJ products while /, also that she and her should consider switching to edible/topical products (and if using topical products, apply to skin where baby would not be touching) when she is neither or to avoid exposing baby to the resins left behind on her skin and clothes by smoking. Meds Home Medications and Allergies Home Medications Medication Instructions Recorded Confirmed Type vitamin-ferrous sulfate tab PO 03/27/23 08/13/23 History 27 mg iron-folic acid 0.8 mg tablet Allergies Allergy/AdvReac Type Severity Reaction Status Date / Time No Known Drug Allergies Allergy Verified 08/13/23 10:51 Review of Systems Review of Systems Narrative: Endorses vaginal bleeding Endorses uterine cramping Endorses movement OB Exam Narrative Exam Narrative: GEN: uncomfortable, breathing through contractions PSYCH: Good Judgment. AOx3. HEENT: -Head: NC/AT -Eyes: No discharge or redness CV: warm and well perfused LUNGS: breathing comfortably on RA ABD: Gravid SKIN: Warm, well perfused. No skin rashes or abnormal lesions : Bright red blood on the pad and at the introitus. Bright red blood also noted within the vaginal vault on SSC. head noted to be low in the pelvis, no cervix visible through speculum. SVE performed, cervical exam of 01/31 100/-1. No bulging bag notable NEURO: No focal deficits Objective Labs 08/13/23 23:10 08/13/23 23:10 Labs: Laboratory Results - last 24 hr 08/13/23 23:10 WBC 24.6 H RBC 3.80 L Hgb 12.1 Hct 34.9 L MCV 92.0 MCH 31.9 MCHC 34.7 RDW 13.4 Plt Count 244 Neut % (Auto) 86.8 H Lymph % (Auto) 6.1 L [place] % (Auto) 6.5 Eos % (Auto) 0.2 L Baso % (Auto) 0.4 Neut # (Auto) 91379 H Lymph # (Auto) 1500 [place] # (Auto) 1600 H Eos # (Auto) 0 Baso # (Auto) 100 Sodium 135 L Potassium 2.5 L* Chloride 105 Carbon Dioxide 24 BUN 4 L Creatinine 0.50 L Estimated GFR > 60 BUN/Creatinine Ratio 8.0 Glucose 105 H Calcium 8.3 L Total Bilirubin 1.2 AST 201 H ALT 253 H Alkaline Phosphatase 126 Total Protein 6.8 Albumin 3.5 Globulin 3.3 Albumin/Globulin Ratio 1.1 Blood Type A Positive Antibody Screen Negative Assessment and Plan Assessment and Plan Assessment and Plan narrative: 37-year-old G2 now P1 admitted for labor now status post delivery of infant who has been transferred to higher level of care. 1. delivery: Status post delivery, based on vaginal bleeding, NST and appearance of placenta, concern for placental abruption as etiology of labor but would recommend awareness of history of delivery in future pregnancies -routine care 2. Preeclampsia with severe features, diagnosed by severe range blood pressures: -magnesium started -patient did require 2 doses of IV medication, labetalol 20 mg and hydralazine 5 mg -continue magnesium times 24 hours, trend blood pressures closely within this time. 3. Tobacco use in -nicotine patch available as needed
[2023-08-14 02:52] LABS: UR Morphine/Opiate cutoff 300 Negative (Negative); Urine Amphetamines Negative (Negative); Urine Barbiturates Negative (Negative); Urine Benzodiazepines Negative (Negative); Urine Cocaine Negative (Negative); Urine MDMA Negative (Negative); Urine Methadone Negative (Negative); Urine Methamphetamines Negative (Negative); Urine Oxycodone Negative (Negative); Urine Phencyclidine Negative (Negative); Urine Tetrahydrocannabinol Positive (Negative); Urine Tricyclic Antidepressant Negative (Negative)
--- NOTE | 2023-08-14 03:31 | P.PCNOB_ITS ---
Events: Labor < 37 wks Labor & Delivery Delivery date: 08/14/23 Intrapartal Events: Precipitous Labor < 3 hours, Bleeding, Severe Preeclampsia, Abruptio Placenta (suspected) and Abnormal Labs Cervical ripening method: none Induction method: none Delivery monitor: external FHT Route of delivery: Estimated blood loss (mL): 200 Anesthesia Type: None Complications: labor, Pre-E wtih SF Narrative: Parvin Atkinson is a 37 year old (previous ruptured ectopic) at 29w6d who arrived to for evaluations of a few hours of vaginal bleeding and cramping. Ultrasound obtained on arrival showed cervical length of 0.4 cm, DORINDA of 5.3 cm with no sign of placenta previa or abruption. NST showed recurrent variable decelerations with baseline heart rate of 165 and decelerations dropping down to 80 beats per minute with most contractions. Patient was jae every 2 minutes on the monitor. SSE was performed and head was found to be low in the pelvis surrounded by bright red gabby blood throu ghout the vagina and introitus. SVE was performed and she was found to be 9/100/1. Obstetric backup was called to be available. She began involuntarily pushing and within 2 contractions infant was delivered. Nuchal cord was present. had poor color, tone and respiratory effort with initial of 6. Primary OB moved to care for baby and backup arrived soon after to deliver placenta. Placenta was intact and 3 vessel cord was visualized. Placenta did appear heavily calcified throughout. THere were no lacerations. Delivery was complicated by pre-E with SF and by delivery. was transferred to [facility] for continued care in [facility] NICU Plan for aftercare: Routine care
[2023-08-14] MEDS: IBUPROFEN 600 MG TABLET PO (04:35)
[2023-08-14] MEDS: ACETAMINOPHEN 325 MG TABLET 650 MG PO (04:35)
[2023-08-14] MEDS: LABETALOL 100 MG TABLET 200 MG PO ×2 (04:35→20:23)
[2023-08-14 06:15] LABS: Alanine Aminotransferase 275 IU/L (<35); Albumin Globulin Ratio 0.9 (1.0-2.8); Alkaline Phosphatase 122 U/L (38-126); Aspartate Aminotransferase 257 IU/L (14-36); BUN Creatinine Ratio 6.7 (6-22); Bilirubin Total 1.2 mg/dL (0.2-1.3); Blood Urea Nitrogen 3 mg/dL (7-17); Calcium 7.9 mg/dL (8.4-10.2); Carbon Dioxide 22 mmol/L (22-32); Chloride 105 mmol/L (98-107); Estimated Glomerular Filt Rate > 60 mL/min (>60); Globulin 3.4 g/dL (1.7-4.1); Glucose 179 mg/dL (70-100); HEMOLYSIS < 15 (0-50); Magnesium 4.1 mg/dL (1.6-2.3); Sodium 133 mmol/L (137-145); Total Protein 6.4 g/dL (6.3-8.2)
[2023-08-14 06:18] LABS: Potassium 2.3 mmol/L (3.4-5.1)
[2023-08-14 06:19] LABS: Hematocrit 33.3 % (36-46); Hemoglobin 11.6 g/dL (12.0-16.0); Mean Corpuscular HGB Conc 34.9 % (30-36); Mean Corpuscular Hemoglobin 32.1 PG (26-34); Mean Corpuscular Volume 91.8 fL (80-100); Platelet Count 250 X10^3/uL (150-400); Red Blood Cell Count 3.62 X10^6/uL (4.0-5.2); Red Cell Distribution Width 13.3 % (11.6-14.8)
[2023-08-14 06:23] LABS: Add Manual Diff / Slide Review YES; White Blood Cell Count 30.2 X10^3/uL (4.5-11.0)
[2023-08-14 06:58] LABS: Neutrophils Absolute Manual 29294 /uL (3000-5900); Total Cells Counted 100
[2023-08-14 06:59] LABS: Platelet Estimate Adequate on smear; RBC Morphology Normal Morphology
--- NOTE | 2023-08-14 08:01 | PM.PN.1 ---
Subjective Subjective Date Patient Seen: 08/14/23 Time Patient Seen: 08:01 Interval history: Doing well this AM. Just talked to [facility], baby girl is doing well. No Zhou, vision changes, RUQ pain. Transfering to ICU due to dropping K+ requiring IV K and tele Exam Vital Signs (past 8 hours): - 08/14/23 00:49 08/14/23 01:00 08/14/23 03:30 Pulse Rate 71 90 Blood Pressure 160/74 H 166/96 H 148/67 H 08/14/23 04:35 08/14/23 04:40 08/14/23 06:09 Pulse Rate 87 80 66 Blood Pressure 145/67 H 166/90 H 129/59 L Narrative Exam Narrative: Gen: laying in bed, well appearing Psych: mood appropriate, alert and interactive Skin: No pallor Abd: fundus firm Objective Labs 08/14/23 05:38 08/14/23 05:38 Labs: Laboratory Results - last 24 hr 08/13/23 08/14/23 08/14/23 23:10 02:00 05:38 WBC 24.6 H 30.2 H* RBC 3.80 L 3.62 L Hgb 12.1 11.6 L Hct 34.9 L 33.3 L MCV 92.0 91.8 MCH 31.9 32.1 MCHC 34.7 34.9 RDW 13.4 13.3 Plt Count 244 250 Neut % (Auto) 86.8 H Not Reportable Lymph % (Auto) 6.1 L Not Reportable [place] % (Auto) 6.5 Not Reportable Eos % (Auto) 0.2 L Not Reportable Baso % (Auto) 0.4 Not Reportable Neut # (Auto) 92699 H Lymph # (Auto) 1500 Not Reportable [place] # (Auto) 1600 H Not Reportable Eos # (Auto) 0 Baso # (Auto) 100 Not Reportable Total Counted 100 Seg Neutrophils % 76.0 H Band Neutrophils % 21.0 H Lymphocytes % (Manual) 2.0 L Monocytes % (Manual) 1.0 L Neutrophils # (Manual) 55427 H Platelet Estimate Adequate on smear RBC Morphology Normal morphology Sodium 135 L 133 L Potassium 2.5 L* 2.3 L* Chloride 105 105 Carbon Dioxide 24 22 BUN 4 L 3 L Creatinine 0.50 L 0.45 L Estimated GFR > 60 > 60 BUN/Creatinine Ratio 8.0 6.7 Glucose 105 H 179 H Calcium 8.3 L 7.9 L Magnesium 4.1 H Total Bilirubin 1.2 1.2 AST 201 H 257 H ALT 253 H 275 H Alkaline Phosphatase 126 122 Total Protein 6.8 6.4 Albumin 3.5 3.0 L Globulin 3.3 3.4 Albumin/Globulin Ratio 1.1 0.9 L U Opiates 300ng/mL cut Negative Ur Oxycodone Screen Negative Urine Methadone Screen Negative Ur Barbiturates Screen Negative U Tricyclic Antidepress Negative Ur Phencyclidine Scrn Negative Ur Amphetamines Screen Negative U Methamphetamines Scrn Negative Ur MDMA Scrn (Ecstasy) Negative U Benzodiazepines Scrn Negative Urine Cocaine Screen Negative U Marijuana (THC) Screen Positive H Urine pH TNP Urine Specific [place] TNP Ur Creatinine TNP Blood Type A Positive Antibody Screen Negative [facility] Medical History (Updated 08/14/23 @ 08:03 by Erin Molina MD) Pre-eclampsia, severe, condition Wears glasses Anxiety (~2019) Ankle pain (~2019) Ovarian cyst (~2012) Infertility (~2008) Ruptured tubal of left fallopian tube Migraine without aura Surgical History (Updated 04/28/23 @ 21:15 by Mirtha Camara) Anesthesia History of cranial surgery (~1985) History of salpingectomy [place] teeth extracted Family History (Updated 04/28/23 @ 21:20 by Mirtha Camara) Mother Diabetes mellitus Asthma Heart disease Heart attack Obesity Developmental disability Hypertension Mental health problem Grandmother Obesity Heart disease Hypertension Kidney failure Heart attack Stroke Father Family estrangement Grandfather Diabetes mellitus Social History marital status: number of children: 0 household members: spouse lives independently: Yes caregiver/support person: No housing: condominium (duplex home) pets and animals: Yes (1 cat, 1 dog) education level: other (GED) occupational status: employed 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 needs: No travel history: over 6 months ago seatbelt use: always helmet use: No water heater temp set < 120 deg: Yes working smoke detector in home: Yes fire extinguisher in home: Yes carbon monox detector in home: Yes firearms in home: Yes firearms unloaded and locked: Yes do you feel safe at home: Yes Smoking Status: Current every day smoker quit status: considering quitting second hand exposure: Yes ( smokes, trying to quit w/ pt) alcohol intake: former (~22-3/day prior to learning of ) substance use type: marijuana (daily; instructed not to use while /) and methamphetamine (clean ~3 years) during the past year weight has: decreased > 10 lbs well-balanced diet: about half the time daily servings fruits/ve-4 caffeine: Yes (excessive soft drinks, informed of 200 mg limit) Type(s) of exercise: walking additional social history: Pt and both smoke cigarettes but are trying to quit together, both also smoke MJ. Advised pt that she should not use MJ products while /, also that she and her should consider switching to edible/topical products (and if using topical products, apply to skin where baby would not be touching) when she is neither or to avoid exposing baby to the resins left behind on her skin and clothes by smoking. Assessment & Plan Assessment and plan (1) Pre-eclampsia, severe, condition: Status: Acute Plan: 37 yo G2 now P1 on day 0 following delivery of infant at 29w6d after coming in overnight with vaginal bleeding. She developed Pre-E prior to delivery, treated with 4 doses of IV antihypertensives. 1. Pre-E with SF- BPs improving with PO Labetolol, normotensive this AM, no repeated IV doses needed since right after delivery - notify MD with any BPs >160/110, will give IV antihypertensive - Continue Mag, Mag level currently sub-therapeutic, goal ?therapeutic levels range between?4.8-8.4 mg/d so will increase rate - Mag to be d/c'ed at midnight tonight - Check mag level with next labs at noon - Continue PO Labetolol 200mg BID, will likely need to increase to TID but with pressures responding so well this AM, will wait to see how BPs look this afternoon - Trend exam for hyperreflexia/pulmonary edema ect - LFTs rising but plts stable, will continue to trend 2. Hx of delivery: Infant in NICU at [facility], last update was doing well 3. Tobacco use d/o, Marijuana use d/o: - UDS on arrival + for marijuana, otherwise negative - nicotine patches available PRN 4. Post-: - routine PP care - Ibuprofen/tylenol available for pain - discharge planning per Pre-E course
[2023-08-14] MEDS: POTASSIUM CHLORIDE IN WATER 10 MEQ/100 ML PIGGYBACK 100 MEQ IV ×7 (08:34→16:05)
[2023-08-14] MEDS: DOCUSATE 100 MG CAPSULE PO (09:09)
--- NOTE | 2023-08-14 10:54 | CM.DANOTE ---
Initial DCP Assessment Note Reviewed EMR and team rounds for pt's medical status and anticipated d/c needs. Met with pt at bedside, her was sleeping in the chair at bedside. She was found to be awake, comfortable, and is anxious to d/c so she can go see her at the [facility]. She and her reside independently in their own home in [place]. No anticipated home d/c needs at this time. No identified resources at this time. Payor: [employer] Out of State Insurance PCP: Dr. Acevedo Pt is a 37 year-old F day-1 was admitted last evening for labor at 29-weeks. She had been having a few hours of vaginal cramping and bleeding, arrived to the ED and was already jae every 2-minutes. She had preclampsia with severe hypertension, baby was already low and was delivered with only 2-involuntary pushes. Pt endorsed having smoked tobacco and used marijuana during , toxicology was positive for high levels of cannabis. Pt had one other previous ruptured ectopic , and shares that she has been trying for 14-years to have a baby. Pt was admitted to the floor after magnesium and potassium were started, being monitored on tele. DCP will continue to follow and assist with any further evolving needs/recommendations. Discharge Planning/Care Management CM Discharge Assessment Start: 08/14/23 10:50 Freq: Status: Active Protocol: Document 08/14/23 10:50 DPL (Rec: 08/14/23 10:52 DPL [id number]) Discharge Planning Assessment Assigned Crepe Laminator Operator JIMI Wong Advance Directives? No History Provided By Patient,Medical Record Has Patient been admitted in last 30 No days? Prior Living Arrangements House Household Members spouse Type of transporation used prior to Drives own vehicle admit Independent with ADL's Yes Is patient alert and oriented? Yes Comment N/A Caregiver for Another No: She just delivered her baby yesterday. Comment OP OBGYN Comment No OP resource/support needs identified at this time. Barriers to Discharge No Discharge Plan Home Transportation Arrangement Spouse Referrals Initiated None needed Whiteboard Updated in Patient Room with Yes name and ext. # of Crepe Laminator Operator Review Status In Process Please Provide Date Initial DC 08/14/23 Assessment Was Performed
[2023-08-14 12:16] LABS: Add Manual Diff / Slide Review NO; Basophils Absolute Auto 0 /uL (0-100); Basophils Percent Auto 0.2 % (0-2); Eosinophils Absolute Auto 0 /uL (0-450); Hemoglobin 10.7 g/dL (12.0-16.0); Lymphocytes Absolute Auto 1400 /uL (1100-4500); Lymphocytes Percent Auto 4.9 % (25-40); Mean Corpuscular HGB Conc 34.5 % (30-36); Mean Corpuscular Hemoglobin 31.7 PG (26-34); Monocytes Absolute Auto 1100 /uL (0-900); Neutrophils Absolute Auto 25700 /uL (1500-7000); Neutrophils Percent Auto 90.9 % (50-75); Platelet Count 254 X10^3/uL (150-400); Red Blood Cell Count 3.37 X10^6/uL (4.0-5.2); Red Cell Distribution Width 13.2 % (11.6-14.8); White Blood Cell Count 28.2 X10^3/uL (4.5-11.0)
[2023-08-14 12:25] LABS: Alanine Aminotransferase 258 IU/L (<35); Albumin 4.6 g/dL (3.5-5.0); Albumin Globulin Ratio 2.9 (1.0-2.8); Alkaline Phosphatase 108 U/L (38-126); Aspartate Aminotransferase 236 IU/L (14-36); BUN Creatinine Ratio 8.2 (6-22); Bilirubin Total 0.7 mg/dL (0.2-1.3); Blood Urea Nitrogen 4 mg/dL (7-17); Calcium 7.2 mg/dL (8.4-10.2); Carbon Dioxide 24 mmol/L (22-32); Chloride 105 mmol/L (98-107); Estimated Glomerular Filt Rate > 60 mL/min (>60); Globulin 1.6 g/dL (1.7-4.1); Glucose 125 mg/dL (70-100); HEMOLYSIS < 15 (0-50); Potassium 2.9 mmol/L (3.4-5.1); Sodium 134 mmol/L (137-145); Total Protein 6.2 g/dL (6.3-8.2)
[2023-08-14 14:06] LABS: Magnesium 5.6 mg/dL (1.6-2.3)
[2023-08-14 19:05] LABS: Magnesium 5.9 mg/dL (1.6-2.3)
[2023-08-15] VITALS (30 sets, daily range): BP systolic 101–141; BP diastolic 49–72; PULSE 57–73; RESP 11–32; TEMP 36.7; O2SAT 94–100
[2023-08-15 05:39] LABS: Add Manual Diff / Slide Review NO; Basophils Absolute Auto 0 /uL (0-100); Basophils Percent Auto 0.2 % (0-2); Eosinophils Absolute Auto 100 /uL (0-450); Eosinophils Percent Auto 0.4 % (2-4); Hematocrit 27.8 % (36-46); Hemoglobin 9.7 g/dL (12.0-16.0); Lymphocytes Absolute Auto 2200 /uL (1100-4500); Lymphocytes Percent Auto 10.8 % (25-40); Mean Corpuscular HGB Conc 34.8 % (30-36); Mean Corpuscular Hemoglobin 31.9 PG (26-34); Mean Corpuscular Volume 91.6 fL (80-100); Monocytes Absolute Auto 1000 /uL (0-900); Neutrophils Absolute Auto 17200 /uL (1500-7000); Neutrophils Percent Auto 83.6 % (50-75); Platelet Count 249 X10^3/uL (150-400); Red Blood Cell Count 3.04 X10^6/uL (4.0-5.2); Red Cell Distribution Width 13.5 % (11.6-14.8); White Blood Cell Count 20.6 X10^3/uL (4.5-11.0)
[2023-08-15 05:52] LABS: Alanine Aminotransferase 247 IU/L (<35); Albumin 2.8 g/dL (3.5-5.0); Alkaline Phosphatase 91 U/L (38-126); Aspartate Aminotransferase 161 IU/L (14-36); BUN Creatinine Ratio 8.5 (6-22); Bilirubin Total 0.5 mg/dL (0.2-1.3); Blood Urea Nitrogen 4 mg/dL (7-17); Carbon Dioxide 26 mmol/L (22-32); Chloride 107 mmol/L (98-107); Estimated Glomerular Filt Rate > 60 mL/min (>60); Globulin 2.8 g/dL (1.7-4.1); Glucose 110 mg/dL (70-100); HEMOLYSIS < 15 (0-50); Sodium 134 mmol/L (137-145); Total Protein 5.6 g/dL (6.3-8.2)
[2023-08-15 06:05] LABS: Calcium 6.5 mg/dL (8.4-10.2); Potassium 2.8 mmol/L (3.4-5.1)
--- NOTE | 2023-08-15 06:56 | PC.NURSE ---
Patient rested well throughout the night, at bedside. Aox4, ambulates well to restroom, with stand by assist. VSS, NSR, Afebrile, tolerating RA. B pedal edema noted. Lungs clear to auscultation. Tolerating general diet. Voids per BRP, some vaginal bleeding noted 1 pad per 4-5 hours. Magnesium sulfate gtt discontinued around 0000. PIV x2 intact, saline locked. Neuro status, DTRs and uterine involution NWL throughout night. Patient reports having no pain. Call light with in reach, fall risk socks intact. Plan of care continues.
[2023-08-15] MEDS: LABETALOL 100 MG TABLET 200 MG PO (09:12)
[2023-08-15] MEDS: DOCUSATE 100 MG CAPSULE PO (09:13)
[2023-08-15] MEDS: POTASSIUM CHLORIDE 20 MEQ TAB 40 MEQ PO (09:13)
--- NOTE | 2023-08-15 12:01 | CM.DPC ---
DCP Cont. Reviewed EMR and team rounds for status updates. Pt has been medically cleared for d/c, plan is to d/c home today, spouse will transport. No further DCP needs identified at this time.
--- NOTE | 2023-08-15 13:16 | P.DS_ITS ---
Discharge Providers Provider Date of admission: 08/13/23 22:17 Discharge Date: 08/15/23 Primary care physician: Julia Acevedo MD Consults: 08/15/23 00:23 Consult to Shipping Order Clerk Routine Comment: Discharge provider: Erin Molina MD Summary Hospital Course Date Patient Seen: 08/15/23 Time Patient Seen: 07:15 Hospital Course: Parvin Atkinson is a 37 year old (previous ruptured ectopic) at 29w6d who presented for a few hours of vaginal bleeding and cramping concerning for labor. Ultrasound obtained on arrival showed cervical length of 0.4 cm, DORINDA of 5.3 cm with no sign of placenta previa or abruption. NST showed recurrent variable decelerations with baseline heart rate of 165 and decelerations dropping down to 80 beats per minute with most contractions. Patient was jae every 2 minutes on the monitor. SSE was performed and head was found to be low in the pelvis surrounded by bright red gabby blood throughout the vagina and introitus. SVE was performed and she was found to be 9/100/1. Obstetric backup was called to be available. She began involuntarily pushing and within 2 contractions was delivered. Nuchal cord was present. had poor color, tone and respiratory effort with initial of 6. Placenta was delivered without complications. De to presentation and appearance of placenta there was concern for placental abruption as etiology of labor. Of note Also on arrival, patient was noted to be severely hypertensive. Preeclampsia labs showed normal platelets, elevated AST and ALT. She received 2 doses of IV labetalol 20 mg and then 2 doses of IV hydralazine 5 mg. She was then started on Po labetalol for daily control. She was continued on Magnesium for 24 hours . BPS improved and were well controlled with 200mg Labetalol BID by PP day 2. Discussion was held about preference to remain inpt for 24 hours after stopping mag but as infant was transferred out of town for NICU care and pt has not yet been able to meet her, decision made to discharge with close follow up. She will check BPs at home and will come in for repeat lab tomorrow to ensure LFTs continuing to improve. F/up appt scheduled for BP check early next week. Pre-E signs/sx were reviewed in detail and she was counseled to proceed immediately to the ER if any arise. She was also found to be hypokalemic. EKG was performed and potassium was repleted. She required multiple K riders with slow improvement of K+. She was discharged home on 20mEq/d of K+ orally with plans to recheck K level in 1-2 days. Peripartum Data Infant Delivery Method: Natural Vaginal Laceration Description: None Episiotomy description: None Discharge Diagnosis (1) Pre-eclampsia, severe, condition: Start Date: 08/13/23 Status: Acute Problem Details: with elevated LFTs, concern for atypical HELLP, LFTs downtrending by day of discharge (2) delivery: Status: Acute (3) Tobacco smoking affecting : Status: Acute Status at Discharge Cognitive/behavioral status at discharge: oriented Functional status at discharge: independent ambulation Overall status at discharge: patient is back to baseline Time Spent with Patient Time attestation: Total time spent providing and/or coordinating discharge services: Time spent: Less than 30 minutes Objective Labs 08/15/23 04:45 08/15/23 04:45 Labs: Laboratory Results - last 24 hr 08/14/23 08/14/23 08/15/23 11:45 18:45 04:45 WBC 20.6 H RBC 3.04 L Hgb 9.7 L Hct 27.8 L MCV 91.6 MCH 31.9 MCHC 34.8 RDW 13.5 Plt Count 249 Neut % (Auto) 83.6 H Lymph % (Auto) 10.8 L [place] % (Auto) 5.0 Eos % (Auto) 0.4 L Baso % (Auto) 0.2 Neut # (Auto) 42441 H Lymph # (Auto) 2200 [place] # (Auto) 1000 H Eos # (Auto) 100 Baso # (Auto) 0 Sodium 134 L Potassium 2.8 L Chloride 107 Carbon Dioxide 26 BUN 4 L Creatinine 0.47 L Estimated GFR > 60 BUN/Creatinine Ratio 8.5 Glucose 110 H Calcium 6.5 L Magnesium 5.6 H* 5.9 H* Total Bilirubin 0.5 AST 161 H ALT 247 H Alkaline Phosphatase 91 Total Protein 5.6 L Albumin 2.8 L Globulin 2.8 Albumin/Globulin Ratio 1.0 Exam Vital Signs (past 8 hours): - 08/15/23 05:30 08/15/23 06:00 08/15/23 06:00 Pulse Rate 68 63 Respiratory Rate 22 21 Blood Pressure 139/65 Pulse Oximetry 100 97 Oxygen Delivery Method 08/15/23 06:30 08/15/23 07:00 08/15/23 07:00 Pulse Rate 62 66 Respiratory Rate 19 17 Blood Pressure 121/67 Pulse Oximetry 97 99 Oxygen Delivery Method 08/15/23 07:00 08/15/23 07:30 08/15/23 08:00 Pulse Rate 68 69 Respiratory Rate 18 21 Blood Pressure Pulse Oximetry 98 99 Oxygen Delivery Method Room Air 08/15/23 08:01 08/15/23 08:01 08/15/23 08:30 Pulse Rate 71 67 Respiratory Rate 24 22 Blood Pressure 141/65 H Pulse Oximetry 99 99 Oxygen Delivery Method 08/15/23 09:03 08/15/23 09:25 08/15/23 09:25 Pulse Rate 71 66 Respiratory Rate 22 24 Blood Pressure 138/65 Pulse Oximetry 99 99 Oxygen Delivery Method 08/15/23 09:30 08/15/23 09:42 08/15/23 10:00 Pulse Rate 73 66 70 Respiratory Rate 32 H 28 H Blood Pressure 138/65 Pulse Oximetry 99 100 Oxygen Delivery Method 08/15/23 10:30 08/15/23 11:00 08/15/23 11:36 Pulse Rate 66 64 Respiratory Rate 22 23 Blood Pressure Pulse Oximetry 99 Oxygen Delivery Method Room Air 08/15/23 12:00 08/15/23 12:30 08/15/23 12:52 Pulse Rate 68 68 Respiratory Rate 24 30 H Blood Pressure 125/59 L Pulse Oximetry Oxygen Delivery Method 08/15/23 12:52 08/15/23 13:00 Pulse Rate 69 70 Respiratory Rate 26 H 21 Blood Pressure Pulse Oximetry Oxygen Delivery Method Oxygen Delivery Method Room Air Narrative Exam Narrative: GEN: Healthy appearing, well-developed, NAD. PSYCH: Good Judgment. AOx3. Normal memory, mood, and affect HEENT: -Head: NC/AT -Eyes: No discharge or redness CV: warm and well perfused LUNGS: breathing comfortably on RA SKIN: Warm, well perfused. No skin rashes or abnormal lesions ABD: Fundus firm MSK: No deformities NEURO: Ambulating with no limitations. No focal deficits Discharge Plan Discharge Plan Patient Disposition: Home Discharge orders & Medications Prescriptions: New acetaminophen 325 mg Tablet 650 mg PO Q6HR PRN (Reason: Pain, Mild (1-3)) Qty: 30 0RF ibuprofen 600 mg Tablet 600 mg PO Q6H PRN (Reason: Fever/Mild Pain (1-3)) Qty: 30 0RF labetalol 100 mg Tablet 200 mg PO BID Qty: 60 0RF potassium chloride 20 mEq tablet extended release 20 meq PO BID Qty: 20 0RF Continued vit-ferrous sulfat-FA 27 mg iron- 0.8 mg tablet PO Follow up/Referrals: Julia Acevedo MD [Primary Care Provider] - Diet/Activity/Treatments Other treatments: Take your labetalol twice daily and your potassium Check your blood pressure 1-2 times per day or if you develop any pre-eclampsia symptoms (Headache, vision changes, right upper abdominal pain, leg swelling) I would like you to get labs drawn tomorrow or Friday to make sure that you liver is doing well and that your potassium has not gone down You have have a seizure, go immediately to the ER and tell them you are and had pre-eclampsia. I would like to have you come see me on Friday for a blood pressure check as well Skin/Wound/Dressing Care Report to your healthcare provider any signs of infection, such as:: chills, fever Visit Report/Discharge Packet Instructions: DI for Pre-eclampsia Stand Alone Forms: Patient Portal/API, Stroke Signs & Symptoms Discharge Data Primary Care Provider: Julia Acevedo Discharges patient from system. Discharge Date/Time: 08/15/23 13:35
== END 2023-08-15 13:35 | disposition home or self-care (01) | DRG 807 ==
LOC: LABOR 08-14 07:27 → ICU 08-14 08:00
PROVIDERS: Obstetrics & Gynecology; Admitting Provider Family Medicine; PCP Student in an Organized Health Care Education/Training Program; Referring Provider Family Medicine; Visit Provider Family Medicine
DX: O14.14 Severe pre-eclampsia complicating childbirth (principal); Z37.0 Single live birth; O60.14X0 Preterm labor third trimester with preterm delivery third trimester, not applicable or unspecified; Z3A.29 29 weeks gestation of pregnancy; O62.3 Precipitate labor; O76 Abnormality in fetal heart rate and rhythm complicating labor and delivery; O99.892 Other specified diseases and conditions complicating childbirth; F12.90 Cannabis use, unspecified, uncomplicated; O99.334 Smoking (tobacco) complicating childbirth; N89.8 Other specified noninflammatory disorders of vagina; N94.9 Unspecified condition associated with female genital organs and menstrual cycle
CPT/HCPCS: 36415; 59050; 59400; 59409; 76815; 80053; 80305; 81001; 83735; 85007; 85025; 86850; 86900; 86901; 87210; 93005; 93010; G0379; J0360; J0702; J3475

== ENCOUNTER → 2023-08-18 11:22 | Outpatient (CLI) | payer BC, SELFPAY ==
[2023-08-18 12:28] LABS: Alanine Aminotransferase 315 IU/L (<35); Albumin 3.1 g/dL (3.5-5.0); Alkaline Phosphatase 85 U/L (38-126); Aspartate Aminotransferase 148 IU/L (14-36); BUN Creatinine Ratio 20.3 (6-22); Bilirubin Total 0.5 mg/dL (0.2-1.3); Blood Urea Nitrogen 13 mg/dL (7-17); Calcium 8.4 mg/dL (8.4-10.2); Carbon Dioxide 24 mmol/L (22-32); Chloride 109 mmol/L (98-107); Estimated Glomerular Filt Rate > 60 mL/min (>60); Glucose 86 mg/dL (70-100); HEMOLYSIS < 15 (0-50); Potassium 3.6 mmol/L (3.4-5.1); Sodium 140 mmol/L (137-145); Total Protein 6.1 g/dL (6.3-8.2)
== END ==
PROVIDERS: PCP Student in an Organized Health Care Education/Training Program; Referring Provider Family Medicine; Visit Provider Family Medicine
DX: O14.15 Severe pre-eclampsia, complicating the puerperium (principal)
CPT/HCPCS: 36415; 80053

== ENCOUNTER → 2023-08-22 15:45 | Outpatient (CLI) | payer BC, OTHER, MEDICAID, SELFPAY ==
[2023-08-22 17:58] LABS: Add Manual Diff / Slide Review NO; Basophils Absolute Auto 100 /uL (0-100); Eosinophils Absolute Auto 200 /uL (0-450); Eosinophils Percent Auto 1.6 % (2-4); Hematocrit 35.1 % (36-46); Hemoglobin 11.7 g/dL (12.0-16.0); Lymphocytes Absolute Auto 2300 /uL (1100-4500); Lymphocytes Percent Auto 19.4 % (25-40); Mean Corpuscular HGB Conc 33.3 % (30-36); Mean Corpuscular Hemoglobin 31.9 PG (26-34); Mean Corpuscular Volume 95.5 fL (80-100); Monocytes Absolute Auto 700 /uL (0-900); Monocytes Percent Auto 6.4 % (3-14); Neutrophils Absolute Auto 8400 /uL (1500-7000); Neutrophils Percent Auto 71.6 % (50-75); Platelet Count 443 X10^3/uL (150-400); Red Blood Cell Count 3.67 X10^6/uL (4.0-5.2); White Blood Cell Count 11.7 X10^3/uL (4.5-11.0)
[2023-08-22 18:12] LABS: Alanine Aminotransferase 125 IU/L (<35); Albumin 3.7 g/dL (3.5-5.0); Albumin Globulin Ratio 1.2 (1.0-2.8); Alkaline Phosphatase 84 U/L (38-126); Aspartate Aminotransferase 33 IU/L (14-36); BUN Creatinine Ratio 17.1 (6-22); Bilirubin Total 0.4 mg/dL (0.2-1.3); Blood Urea Nitrogen 14 mg/dL (7-17); Calcium 9.5 mg/dL (8.4-10.2); Carbon Dioxide 24 mmol/L (22-32); Chloride 107 mmol/L (98-107); Estimated Glomerular Filt Rate > 60 mL/min (>60); Globulin 3.1 g/dL (1.7-4.1); Glucose 94 mg/dL (70-100); HEMOLYSIS < 15 (0-50); Potassium 4.7 mmol/L (3.4-5.1); Sodium 139 mmol/L (137-145); Total Protein 6.8 g/dL (6.3-8.2)
== END ==
PROVIDERS: PCP Student in an Organized Health Care Education/Training Program; Referring Provider Family Medicine; Visit Provider Family Medicine
DX: O14.15 Severe pre-eclampsia, complicating the puerperium (principal)
CPT/HCPCS: 36415; 80053; 85025